=== PATIENT | female | born 1995 | race Caucasian/White ===

== ENCOUNTER → 2024-02-25 | Outpatient (CLI) | payer OTHER ==
[2024-02-27 02:06] LABS: MUMPS VIRUS IGG ANTIBODY 55.6 AU/mL (Immune >10.9); RUBELLA AB IGG-REFLAB 1.58 index (Immune >0.99)
[2024-02-27 06:06] LABS: RUBEOLA (MEASLES) IGG 76.9 AU/mL (Immune >16.4)
== END | disposition home or self-care (01) ==
LOC: LABMN 14:45
PROVIDERS: ATTEND Internal Medicine
DX: Z02.1 Encounter for pre-employment examination (principal)
CPT/HCPCS: 86706; 86735; 86762; 86765; 86787